=== PATIENT | male | born 1950 | race Caucasian/White ===

== ENCOUNTER 2017-10-28 13:09 | Emergency (ER) | payer MEDICARE, MEDICAID ==
[~2017-10-28] VITALS: Ht 175.3 cm; Wt 68.0 kg
[2017-10-28] MEDS ORDERED: CYCLOBENZAPRINE 10MG TABLET PO ONE (14:45)
[2017-10-28] MEDS ORDERED: KETOROLAC 30MG/ML VIAL IM ONE (14:45)
[2017-10-28 16:02] VITALS: BP 117/58
== END 2017-10-28 16:04 | disposition home or self-care (01) ==
LOC: ER 15:48
DX: S30.0XXA Contusion of lower back and pelvis, initial encounter (principal); I10 Essential (primary) hypertension; E03.9 Hypothyroidism, unspecified; X50.0XXA Overexertion from strenuous movement or load, initial encounter; Y93.89 Activity, other specified; Y92.89 Other specified places as the place of occurrence of the external cause; Y99.8 Other external cause status
CPT/HCPCS: 72070; 72100; 96372; 99284; J1885